=== PATIENT | female | born 1995 | race Caucasian/White ===

== ENCOUNTER 2024-10-16 10:42 | Emergency (ER) | payer OTHER ==
[~2024-10-16] VITALS: Ht 154.9 cm; Wt 72.6 kg
[2024-10-16 10:47] VITALS: PULSE 90; RESP 17; TEMP 98.6; O2SAT 100
[2024-10-16] MEDS: CYCLOBENZAPRINE HCL 10 MG TAB PO ONE (11:04)
[2024-10-16] MEDS: KETOROLAC TROMETHAMINE 60 MG/2 ML VIAL IM ONE (11:04)
[2024-10-16] MEDS ORDERED: CYCLOBENZAPRINE10 MG PO (11:24)
== END 2024-10-16 11:42 | disposition home or self-care (01) ==
LOC: ER 10:48
DX: M54.50 Low back pain, unspecified (principal); G89.29 Other chronic pain; F41.9 Anxiety disorder, unspecified
CPT/HCPCS: 99282; J1885